=== PATIENT | female | born 1985 | race African-American/Black ===

== ENCOUNTER 2018-06-18 08:47 | Observation (INO) | payer MEDICAID ==
[~2018-06-18] VITALS: Ht 160 cm; Wt 93.9 kg
[2018-06-18] MEDS ORDERED: PNV11TAB MT (10:29)
== END 2018-06-18 10:55 | disposition home or self-care (01) ==
LOC: L&D 08:47
PROVIDERS: ADMIT Specialist; ATTEND Specialist
DX: O42.913 Preterm premature rupture of membranes, unspecified as to length of time between rupture and onset of labor, third trimester (principal); O48.0 Post-term pregnancy; Z3A.41 41 weeks gestation of pregnancy
CPT/HCPCS: 99281; G0378